=== PATIENT | female | born 2005 | race Caucasian/White ===

== ENCOUNTER 2023-11-01 17:05 | Emergency (ER) | payer BC, SELFPAY ==
[2023-11-01 17:11] VITALS: BP 115/75; BMI 24.0
--- NOTE | 2023-11-01 20:07 | EDRN ---
Late note:
Patient was placed in hallway 41A bed from the waiting room. Patient is accompanied by parent. At approx, 1925 patient had loud outburst. Patient yelling and screaming in the hallway. Patient states 'this is bullshit! I'm crying in pain and no one
is doing anything for me.' Patient asked to calm down and reduce her voice as it is disrupting other patients.
Mother inquired when she would be seen. I informed her of the process and that I am unable to give her an exact time.
Patient was guided back to the stretcher by her mother.
At approx 194 patient roaming the hallways crying and asked to have a seat back on the bed as she can't be wondering around. Patient cursing out staff and yelling again.
Mother upset and angry as well.
Patient and mother were informed that they need to keep their voices down as there are other patients around. Patient still yelling.
I informed mother and patient that they both need to calm down and be patience.
I informed the mother that if she was to raise her voice again and curse at staff, the mother would be escorted out by security.
At 1999, mother was asking all staff, including hospitalists, EVS and registration various questions.
Mother asked by several staff to wait in the seat.
[2023-11-01] MEDS: TORADOL 60 MG IM (21:04)
[2023-11-01 21:14] VITALS: BP 118/80
[2023-11-01] MEDS: PEN VK 500 MG PO (21:53)
[2023-11-01] MEDS: XYLOCAINE VISCOUS CUP 10 ML PO (22:00)
--- NOTE | 2023-11-01 22:04 | ED.GENMED ---
History of Present Illness
General
Chief Complaint: Dental Problem
Source: patient and family
Time Seen by Provider: 11/01/23 19:55
Travel History
Have you had any contact with someone who has COVID-19?: No
Do you have any symptoms of coronavirus? Fever > 100 degrees, chills, cough, shortness of breath, sore throat, loss of taste or smell, muscle aches, or headache?: No
History of Present Illness
History of Present Illness:
17-year-old female who presents with mouth pain. Patient states it feels like she is swishing with alcohol and her whole mouth is burning. Patient states that she had her wisdom teeth out 1 week ago. She has not seen the surgeon for follow-up.
She was on Vicodin but it did not seem to help. She had low but nausea because of the pain. Patient states it just hurts all over. She does not report any focal pain at the bottom or top of her dentition.
Past History
Past History
ED Past Medical History: Psychiatric
Social History
Tobacco: No 2nd hand smoke
Drug: Marijuana (Occasional)
Phy Exam
Physical Exam
Physical Exam:
CONSTITUTIONAL Vital signs reviewed, Patient alert and oriented to person, place and time. Well-appearing
HEAD atraumatic, normocephalic.
EYES eyelids normal to inspection, Extraocular muscles intact, Conjunctiva normal, Sclera normal.
ENT postoperative changes at recent extraction but no pustulous drainage, no pericoronitis, no focal tenderness. No ulcerations.
NECK normal range of motion, Trachea midline, no jugular venous distention.
RESP no respiratory distress
BACK No obvious deformities
UPPER EXTREMITY Gross Range of motion normal, gross motor strength normal
LOWER EXTREMITY Gross range of motion normal, Gross motor strength normal
NEURO Speech normal, No focal motor deficits include, Ana coma scale 15, Memory normal, Cranial Nerves intact to screening exam.
SKIN Skin warm, dry, and normal in color.
PSYCHIATRIC Patient oriented to person place and time, Normal affect.
Course
Orders/Labs/Results
Orders:
Orders
11/01/23 20:20
Rapid Strep Group A Urgent
QUINTIN Source: Throat/Pharynx
Specimen Description:
Date Specimen was Collected: 11/01/23
Time Specimen was Collected: 20:18
Throat Culture [Throat Culture, Comprehensive] Urgent
QUINTIN Source: Throat/Pharynx
Specimen Description:
Date Specimen was Collected: 11/01/23
Time Specimen was Collected: 20:18
11/01/23 21:00
Ketorolac [Toradol] 60 mg IM NOW STA
11/01/23 21:01
Ketorolac [Toradol] 60 mg .ROUTE .STK-MED ONE
11/01/23 21:47
Penicillin V Potassium [Pen Vk] 500 mg PO NOW STA
11/01/23 21:55
Viscous Lidocaine 2% [Xylocaine Viscous Cup] 15 ml .ROUTE .STK-MED ONE
11/01/23 21:59
Viscous Lidocaine 2% [Xylocaine Viscous Cup] 10 ml PO NOW STA
Vital Signs
Initial and Last Documented VS:
Initial Vital Signs
Temp Pulse Resp BP Pulse Ox
99.0 F 72 16 115/75 100
11/01/23 17:11 11/01/23 17:11 11/01/23 17:11 11/01/23 17:11 11/01/23 17:11
Last Documented Vital Signs
Temp Pulse Resp BP Pulse Ox
99.0 F 84 18 118/80 98
11/01/23 17:11 11/01/23 21:14 11/01/23 21:14 11/01/23 21:14 11/01/23 21:14
MDM/Problems Addressed
MDM/Problems Addressed:
Oral pain
*Pulse Oximetry
Patient hypoxic: no
*Critical Care Note
Total Time (30-74mins, 75-104mins- exclusive of procedures): Not Applicable
Data Reviewed
Prescriptions/Medications Considered But Not Given:
Consider clindamycin but I do think that penicillin is okay
Patient Management
Escalation/DeEscalation of care consider admission/obs:
Mom an appoint with oral surgeon for tomorrow. Okay for outpatient follow-up. Do not suspect dry socket as pain is diffuse and in her mouth
ED Attending Note
-
Portions of this chart may have been created with voice recognition software.� Occasional wrong word or��sound alike� substitutions may have occurred due to the inherent limitations of voice recognition software.
Discharge Plan
Departure
Patient Disposition: Home (Routine Discharge)
Date of Disposition: 11/01/23
Time of Disposition: 22:04
Patient with high blood pressure during this ER visit?: No
Discharge Problem:
Acute oral pain
Instructions: Dental Pain (DC)
Prescriptions:
New
penicillin V potassium 500 mg tablet
500 mg PO QID Qty: 28 0RF
Referrals:
NONE,* [Family Provider] -
Activity Restrictions/Additional Instructions:
Please see your oral surgeon tomorrow as planned. Return for fevers, worsening pain or any other concerns.
Interventions
Interventions:
*Risk Screen - Suicide Last Done: 11/01/23 17:11
*General Assessment Last Done: 11/01/23 19:19
*Neglect/Abuse Screening Last Done: 11/01/23 17:11
ED- Fall Risk Assessment Last Done: 11/01/23 19:21
*ED COVID-19 Vaccine History Last Done: 11/01/23 17:11
== END 2023-11-01 22:17 | disposition home or self-care (01) ==
LOC: EMR 17:05
PROVIDERS: EMERGENCY PHYSICIAN Emergency Medicine
DX: K08.89 Other specified disorders of teeth and supporting structures (principal); Z98.890 Other specified postprocedural states; Z88.1 Allergy status to other antibiotic agents
CPT/HCPCS: 99284; 96372; 87070; 87880